=== PATIENT | female | born 1950 | race Caucasian/White ===

== ENCOUNTER 2017-03-29 09:21 | Emergency (ER) | payer OTHER, MEDICAID ==
[~2017-03-29] VITALS: Ht 167.6 cm; Wt 72.1 kg
[2017-03-29 09:21] VITALS: BP_SYST 188
[2017-03-29] MEDS ORDERED: cloNIDine HCL 0.1 MG TABLET PO ONE (11:30)
[2017-03-29 14:19] VITALS: BP_SYST 138
== END 2017-03-29 14:19 | disposition home or self-care (01) ==
LOC: SED 09:21
DX: I10 Essential (primary) hypertension (principal)
CPT/HCPCS: 99283